=== PATIENT | male | born 1960 | race Caucasian/White ===

== ENCOUNTER 2017-01-10 10:28 | Emergency (ER) | payer BC ==
[2017-01-10] MEDS ORDERED: TORAdol 30 mg Injection IM ONE (10:52)
[2017-01-10] MEDS ORDERED: TORAdol 30 mg Injection ONE (10:55)
--- NOTE | 2017-01-10 11:01 | ERPHSYRPT ---
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; pain radiates around to the left abd; no nausea or vomiting; no shortness of breath; no prior trauma; no fever or chills ; no travel; no cough; pain increases with deep inspiration or stretching; no prior history; bowels moving okay; urinating okay; no hematuria; history of kidney stone; this pain is different; 8/10 constant; nonsmoker Timing/Duration: today, hour(s) (2) Activities at Onset: other (Driving) Quality: sharpness Location: other (left lower ribs mid axillary line) Chest Pain Radiation: abdomen (left side) Severity of Pain-Max: severe (8/10) Severity of Pain-Current: severe Modifying Factors: Improves With: breathing (exacerbates), movement (exacerbates ), palpation (exacerbates) Associated Symptoms: hurts to breathe Prior Chest Pain/Cardiac Workup: no prior chest pain Nitro Today/Relief: no nitro taken today Aspirin Treatment Today: no aspirin today Allergies/Adverse Reactions: No Known Drug Allergies Allergy (Unverified 01/10/17 10:37) Home Medications: Unobtainable [Unobtainable] 01/10/17 [History] Hx Influenza Vaccination/Date Given: No Hx Pneumococcal Vaccination/Date Given: No Immunizations Up to Date: Yes - Review of Systems Constitutional: No Symptoms Eyes: No Symptoms Ears, Nose, & Throat: No Symptoms Respiratory: No Cough, No Dyspnea, No Wheezing Cardiac: Chest Pain (left lower ribs), No Palpitations, No Syncope Abdominal/Gastrointestinal: No Abdominal Pain, No Nausea, No Vomiting, No Diarrhea Genitourinary Symptoms: No Dysuria, No Frequency, No Hematuria, No Hesitancy, No Incontinence, No Flank Pain Musculoskeletal: No Symptoms Skin: No Symptoms Neurological: No Symptoms Psychological: No Symptoms Endocrine: No Symptoms Hematologic/Lymphatic: No Symptoms Immunological/Allergic: No Symptoms - Past Medical History Pertinent Past Medical History: Yes Cardiac History: Hypertension History: Other (kidney stones) - Past Surgical History Past Surgical History: Yes Other Surgical History: knee - Social History Smoking Status: Never smoker Exposure to second hand smoke: No Alcohol Use: Socially Drug Use: none Patient Lives Alone: No Significant Family History: no pertinent family hx, hypertension - Nursing Vital Signs Nursing Vital Signs: Initial Vital Signs Temperature 97.6 F 01/10/17 10:33 Pulse Rate 73 01/10/17 10:33 Respiratory Rate 16 01/10/17 10:33 Blood Pressure 152/92 01/10/17 10:33 O2 Sat by Pulse Oximetry 95 01/10/17 10:33 Pain Scale Pain Intensity 6 - Physical Exam General Appearance: moderate distress (left lower rib pain), alert Eye Exam: PERRL/EOMI, eyes nml inspection, No photophobia Ears, Nose, Throat Exam: normal ENT inspection, TMs normal, pharynx normal, moist mucous membranes Neck Exam: normal inspection, non-tender, supple, full range of motion, No meningismus, No JVD Respiratory Exam: normal breath sounds, chest tenderness (left lower ribs mid axillary line), lungs clear, respiratory distress, airway intact, No crackles/ rales, No rhonchi, No wheezing, No pleural rub Cardiovascular Exam: regular rate/rhythm, normal heart sounds, normal peripheral pulses, capillary refill <2 sec, No murmur Gastrointestinal/Abdomen Exam: soft, normal bowel sounds, No tenderness, No mass , No guarding, No pulsatile mass, No rebound, No organomegaly Rectal Exam: deferred Back Exam: normal inspection, normal range of motion, No CVA tenderness, No vertebral tenderness, No rash Extremity Exam: normal inspection, normal range of motion, No crista's sign, No pedal edema, No tenderness Neurologic Exam: alert, oriented x 3, cooperative, career development coordinator/teacher II-XII nml as tested, normal mood/affect, nml cerebellar function, nml station & gait Skin Exam: normal color, warm, dry, No rash SpO2 Interpretation: normal SpO2: 95 Oxygen Delivery: Room Air - Course Nursing assessment & vital signs reviewed: Yes - Radiology Exams Chest X-ray Interpretation: Reviewed by me, Teleradiologist Report, Negative, No Fracture, No Pneumonia, No Pneumothorax, Nml Alignment, Nml Heart Size, No Infiltrates, Nml Mediastinum, Nml Soft Tissues, Other (small calcified granuloma Left apex) Left Ribs X-ray Interpretation: Reviewed by me, Teleradiologist Report, Negative, No Fracture Ordered Tests: Active Orders 24 hr Category Date Time Status Pulse Oximetry (ED) STAT Care 01/10/17 10:49 Active Re-Check Vital Signs STAT Care 01/10/17 10:49 Active CHEST 2 VIEWS (PA AND LAT) Stat Exams 01/10/17 10:50 Completed RIBS UNILATERAL Stat Exams 01/10/17 10:51 Completed UA Stat Lab 01/10/17 11:05 Completed Medication Summary Discontinued Medications Generic Name Dose Route Start Last Admin Trade Name Freq PRN Reason Stop Dose Admin Ketorolac Tromethamine 60 mg 01/10/17 10:52 01/10/17 10:56 Toradol 30 Mg Injection IM 01/10/17 10:53 60 mg STAT ONE Administration Ketorolac Tromethamine Confirm 01/10/17 10:55 Toradol 30 Mg Injection Administered 01/10/17 10:56 Dose 60 mg .ROUTE .STK-MED ONE Lab/Rad Data: Laboratory Results 01/10/17 Range/Units 11:05 Ur Collection Type VOID Urine Color YELLOW (YELLOW) Urine Appearance CLEAR (CLEAR) Urine pH 8.0 (5-6) Ur Specific Davidson 1.005 (1.005-1.025) Urine Protein NEGATIVE (Negative) Urine Ketones NEGATIVE (NEGATIVE) Urine Blood NEGATIVE (0-5) Solomon/ul Urine Nitrite NEGATIVE (NEGATIVE) Urine Bilirubin NEGATIVE (NEGATIVE) Urine Urobilinogen NORMAL (0-1) mg/dL Ur Leukocyte Esterase NEGATIVE (NEGATIVE) Urine Glucose NEGATIVE (NEGATIVE) mg/dL Specimen Received 01/10/17 1105 reviewed - Progress Progress: re-examined (after x-ray) Air Movement: good Progress Note: 01/10/17 11:02 discussed treatment plan; we'll check urine; gave ketorolac for pain; x-ray pending; we'll monitor and recheck 01/10/17 11:24 rechecked after xr; at bedside; discussed lab - U/A findings - neg; XR results pending; patient jsut medicated; will monitor and recheck 01/10/17 11:43 rechecked after meds and informed of xr findings all neg; good relief with meds ; at bedside; discussed treatment plan and instructions given Blood Culture(s) Obtained: No Antibiotics given: No Counseled pt/family regarding: lab results, diagnosis, rad results - Departure Time of Disposition: 11:51 Departure Disposition: Home Clinical Impression: strained rib left, Chest pain made worse by breathing Condition: Stable Critical Care Time: No Referrals: BEAU CORONADO JR [Primary Care Provider] - Instructions: Muscle Strain Additional Instructions: rest ice; avoid strining; 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 Call for appointment. Return if any problems. If you smoke please stop. Call or follow up with your family doctor for assistance if you need it to stop. Please wear your seatbelt when driving. Have a nice day. Thank you for allowing us to participate in your care today. :o) Dr Toñito Braun
[2017-01-10 11:06] LABS: Bilirubin NEGATIVE (NEGATIVE); Blood NEGATIVE Ery/ul (0-5); COMPLETE URINE MICROSCOPIC? NO; Collection Type VOID; Glucose NEGATIVE (NEGATIVE); Leukocyte Esterase NEGATIVE (NEGATIVE)
--- NOTE | 2017-01-10 11:37 | XRAY ---
Exam: Two-view chest from 01/10/2017. Comparison: None. Indication: Left side chest pain. Findings: Upright PA and lateral chest films are submitted for evaluation. The heart size and contour are normal. There is a small calcified lymph node at the AP window on the left. The remainder of the elvia and mediastinal structures appears unremarkable. There is no mediastinal widening or shift. There is average inflation of the lungs. A small calcified granuloma is seen within the left lung apex. No air space infiltrates, vascular congestion, pneumothorax, or pleural fluid is seen. No acute osseous process is seen. The bones appears somewhat demineralized. Impression: 1. No acute cardiopulmonary disease is seen.
--- NOTE | 2017-01-10 11:41 | XRAY ---
Exam: 4 view left rib series from 01/10/2017. Comparison: None. Indication: No known injury, complains of left mid axillary rib pain. Findings: I see no evidence of fracture line or displaced left rib fracture. No focal bone destruction is seen within the left rib cage. A small calcified granuloma is seen within the left lung apex. No pneumothorax or pleural effusion is seen.. Some costochondral calcification is seen at the anterior margin of the mid to lower ribs on the left. A small calcified node is seen adjacent to the aortic knob and within the AP window. Impression: 1. No acute left-sided rib fracture or other significant focal left rib lesion is seen.
[2017-01-10 12:23] VITALS: BP 125/75; PULSE 78; O2SAT 97
== END 2017-01-10 12:21 | disposition home or self-care (01) ==
LOC: ED 10:28
DX: S23.41XA Sprain of ribs, initial encounter (principal); R07.1 Chest pain on breathing; I10 Essential (primary) hypertension
CPT/HCPCS: 71020; 71100; 81002; 96372; 99284; J1885